=== PATIENT | male | born 1990 | race Caucasian/White ===

== ENCOUNTER 2017-12-10 07:54 | Emergency (ER) | END 2017-12-10 11:02 | disposition home or self-care (01) ==

== ENCOUNTER → 2019-01-09 | Emergency (ER) | payer OTHER ==
[~2019-01-09] VITALS: Wt 81.0 kg
[~2019-01-09] MED LIST: ACET500C5 PO; CETI10CA PO; GUAI-637 PO; IBUP-1542 PO
[2019-01-09 12:14] VITALS: BP 159/80; PULSE 63; RESP 20
--- NOTE | 2019-01-09 15:23 | ERD ---
ER Documentation Chief Complaint Chief Complaint cough intermittent for the past few days . poss mold exposure HPI Patient is a 28 years old male with no known past medical history presenting to the clinic for possible mold evaluation. reports hearing about a mold outbreak in the news and reports seeing mold in her AC. Patient denies all review of system. ROS All systems reviewed and are negative except as per history of present illness. Medications Home Meds Active Scripts Cetirizine Hcl* (Zyrtec*) 10 Mg Capsule, 10 MG PO DAILY, #10 TAB.CHEW Prov:GRISELMADISON Borrego-C 12/10/17 Guaifenesin* (Robitussin*) 100 Mg/5 Ml Syrup, 100 MG PO Q4H PRN for COUGH, #4 OZ Prov:GRISELMADISON-C 12/10/17 Acetaminophen* (Tylophen*) 500 Mg Capsule, 2 CAP PO Q8H PRN for PAIN AND OR ELEVATED TEMP, #20 CAP Prov:MADISON RECINOS-C 12/10/17 Ibuprofen* (Motrin*) 600 Mg Tab, 600 MG PO Q6, #30 TAB Prov:GRISELMADISON ZARCO-C 12/10/17 Allergies Allergies: Coded Allergies: No Known Allergy (Unverified , 12/10/17) PMhx/Soc Medical and Surgical Hx: pt denies Medical Hx, pt denies Surgical Hx History of Surgery: No Anesthesia Reaction: No Hx Neurological Disorder: No Hx Respiratory Disorders: No Hx Cardiac Disorders: No Hx Psychiatric Problems: No Hx Miscellaneous Medical Probl: No Hx Alcohol Use: Yes (on occasion.) Hx Substance Use: No Hx Tobacco Use: No Smoking Status: Never smoker Physical Exam Vitals Vital Signs Date Temp Pulse Resp B/P (MAP) Pulse Ox O2 O2 Flow FiO2 Time Delivery Rate 01/09/19 98.9 63 20 159/80 97 12:14 (106) Physical Exam Const: No acute distress Head: Atraumatic Eyes: Normal Conjunctiva ENT: Normal External Ears, Nose and Mouth. Neck: Full range of motion. No meningismus. Resp: Clear to auscultation bilaterally. No rales, rhonchi, wheezing. No signs of respiratory distress. Cardio: Regular rate and rhythm, no murmurs Neur: Awake and alert Psych: Normal Mood and Affect Procedures/MDM Patient was seen and evaluated for possible mold infection. Patient has an unremarkable physical exam but does not require no further work-up. Low suspicion of any mold versus bacterial versus viral infection. Patient stable ready for discharge. Follow up with PCP. Departure Diagnosis: Primary Impression: Cough Condition: Stable Patient Instructions: Cough, Chronic, Uncertain Cause, (Adult) Referrals: [facility] Additional Instructions: Patient advised to return to the ED immediately for new or worsening symptoms. Patient advised to follow up with primary care provider in the next 24-48 hours. Patient verbalized understanding and agrees with treatment plan and course of action. If patient has no primary care they may follow up with [facility] [address] [place] [id number] or [facility] [address] [place] [address] or [facility] [address] [place] [address] MICHELEL GRIFFIN PA-C Jan 09, 2019 15:23
== END | disposition home or self-care (01) ==
LOC: FTE 11:47
DX: R05 Cough (principal)
CPT/HCPCS: 99282